=== PATIENT | female | born 1975 | race Caucasian/White ===

== ENCOUNTER 2016-09-22 09:31 | Outpatient (CLI) | payer BC | END 2016-09-22 09:32 | disposition home or self-care (01) | DX: R53.83 Other fatigue (principal); D64.9 Anemia, unspecified; E03.9 Hypothyroidism, unspecified ==

== ENCOUNTER 2016-11-15 09:40 | Outpatient (CLI) | payer BC | END 2016-11-15 09:41 | disposition home or self-care (01) | DX: E03.9 Hypothyroidism, unspecified (principal); R53.83 Other fatigue; D64.9 Anemia, unspecified ==

== ENCOUNTER 2017-02-02 09:42 | Outpatient (CLI) | payer BC ==
[2017-02-02 18:28] LABS: FERRITIN 56.1 ng/mL (11.0-306.8); TOTAL T3 1.15 ng/mL (0.87-1.78)
[2017-02-02 18:39] LABS: THYROID STIMULATING HORMONE 0.5 uIU/mL (0.34-5.60)
== END 2017-02-02 09:43 | disposition home or self-care (01) ==
LOC: LAB.F 09:42
PROVIDERS: ATTEND Family Medicine
DX: E03.9 Hypothyroidism, unspecified (principal)
CPT/HCPCS: 36415; 82728; 84439; 84443; 84480; 84481; 84482

== ENCOUNTER 2017-09-05 15:07 | Outpatient (CLI) | payer BC ==
[2017-09-05 18:54] LABS: THYROID STIMULATING HORMONE 1.24 uIU/mL (0.34-5.60)
[2017-09-05 18:58] LABS: FREE T4 (FREE THYROXINE) 0.83 ng/dL (0.58-1.64)
== END 2017-09-05 15:08 | disposition home or self-care (01) ==
LOC: LAB.F 15:07
PROVIDERS: ATTEND Internal Medicine Endocrinology, Diabetes & Metabolism
DX: E03.9 Hypothyroidism, unspecified (principal)
CPT/HCPCS: 36415; 84439; 84443

== ENCOUNTER 2018-06-20 09:09 | Outpatient (CLI) | payer BC ==
[2018-06-20 18:17] LABS: THYROID STIMULATING HORMONE 0.22 uIU/mL (0.34-5.60)
[2018-06-20 18:20] LABS: FREE T4 (FREE THYROXINE) 0.91 ng/dL (0.58-1.64)
== END 2018-06-20 09:10 | disposition home or self-care (01) ==
LOC: LAB.F 09:09
PROVIDERS: ATTEND Internal Medicine Endocrinology, Diabetes & Metabolism
DX: E03.9 Hypothyroidism, unspecified (principal)
CPT/HCPCS: 36415; 84439; 84443

== ENCOUNTER 2018-10-19 11:35 | Outpatient (CLI) | payer BC ==
[2018-10-19 18:12] LABS: THYROID STIMULATING HORMONE 0.2 uIU/mL (0.34-5.60)
[2018-10-19 18:14] LABS: FREE T4 (FREE THYROXINE) 0.88 ng/dL (0.58-1.64)
== END 2018-10-19 11:36 | disposition home or self-care (01) ==
LOC: LAB.F 11:35
PROVIDERS: ATTEND Internal Medicine Endocrinology, Diabetes & Metabolism
DX: E03.9 Hypothyroidism, unspecified (principal)
CPT/HCPCS: 36415; 84439; 84443

== ENCOUNTER 2020-12-19 11:56 | Outpatient (CLI) | payer BC ==
[2020-12-19 15:50] LABS: THYROID STIMULATING HORMONE 0.33 uIU/mL (0.34-5.60)
[2020-12-19 15:51] LABS: FREE T3 4.27 pg/mL (2.5-3.9)
[2020-12-19 15:52] LABS: FREE T4 (FREE THYROXINE) 1.09 ng/dL (0.58-1.64)
[2020-12-24 01:46] LABS: THYROID PEROXIDASE ANTIBODIES 22 IU/mL (<9)
== END 2020-12-19 11:57 | disposition home or self-care (01) ==
LOC: LAB.S 11:56
PROVIDERS: ATTEND Acupuncturist
DX: E06.3 Autoimmune thyroiditis (principal); R76.0 Raised antibody titer
CPT/HCPCS: 36415; 84439; 84443; 84481; 86376; 86800

== ENCOUNTER 2021-01-23 17:48 | Outpatient (CLI) | payer BC ==
[2021-01-23 20:40] LABS: THYROID STIMULATING HORMONE 3.27 uIU/mL (0.34-5.60)
[2021-01-23 20:42] LABS: FREE T3 3.19 pg/mL (2.5-3.9); FREE T4 (FREE THYROXINE) 0.9 ng/dL (0.58-1.64)
[2021-01-23 20:47] LABS: PROLACTIN 7.5 ng/mL
[2021-01-27 12:22] LABS: DHEA SULFATE 379 mcg/dL (19-231)
[2021-01-27 13:56] LABS: THYROID PEROXIDASE ANTIBODIES 30 IU/mL (<9)
[2021-01-28 21:02] LABS: DIHYDROTESTOSTERONE 5 ng/dL (< OR = 20)
== END 2021-01-23 17:49 | disposition home or self-care (01) ==
LOC: LAB.S 17:48
PROVIDERS: ATTEND Acupuncturist
DX: E06.3 Autoimmune thyroiditis (principal); E28.1 Androgen excess
CPT/HCPCS: 36415; 80327; 82627; 84146; 84439; 84443; 84481; 86376; 86800

== ENCOUNTER 2021-03-26 09:23 | Outpatient (CLI) | payer BC ==
[2021-03-26 15:56] LABS: THYROID STIMULATING HORMONE 7.38 uIU/mL (0.34-5.60)
[2021-03-26 15:58] LABS: FREE T3 3.33 pg/mL (2.5-3.9); FREE T4 (FREE THYROXINE) 1.01 ng/dL (0.58-1.64)
== END 2021-03-26 09:24 | disposition home or self-care (01) ==
LOC: LAB.S 09:23
PROVIDERS: ATTEND Acupuncturist
DX: E06.3 Autoimmune thyroiditis (principal)
CPT/HCPCS: 36415; 84439; 84443; 84481

== ENCOUNTER 2021-04-22 12:29 | Outpatient (CLI) | payer BC | END 2021-04-22 12:30 | disposition home or self-care (01) | LOC: LAB.S 12:29 | PROVIDERS: ATTEND Physician Assistant | DX: E03.9 Hypothyroidism, unspecified (principal); K59.00 Constipation, unspecified; F41.9 Anxiety disorder, unspecified | CPT/HCPCS: 82784; 83516; 86255 ==

== ENCOUNTER 2021-04-29 08:42 | Outpatient (CLI) | payer BC ==
--- NOTE | 2021-04-29 10:47 | XRAY Report ---
PROCEDURE: Lumbar Spine 2 View INDICATIONS: CHRONIC LOWER PX TECHNIQUE: 3 views of the lumbar spine were acquired. COMPARISON: None. FINDINGS: Mild dextrocurvature. Scattered multilevel endplate spurring and diffuse facet arthropathy. Mild narr owing of the L5-S1 disc space. There is also mild narrowing of the lower thoracic disc spaces. Mild n arrowing of the L1-L2 disc space. IMPRESSION: Multilevel mild lumbar spondylosis and diffuse facet arthropathy. Mild dextrocurvature. Reviewed by: Gary Nevarez MD on 04/29/2021 10:45 AM PDT Approved by: Gary Nevarez MD on 04/29/2021 10:45 AM PDT Station ID: [id number]
== END 2021-04-29 08:43 | disposition home or self-care (01) ==
LOC: DI.S 08:42
PROVIDERS: ATTEND Nurse Practitioner Psychiatric/Mental Health
DX: M47.816 Spondylosis without myelopathy or radiculopathy, lumbar region (principal); M48.061 Spinal stenosis, lumbar region without neurogenic claudication

== ENCOUNTER 2021-07-20 10:09 | Outpatient (CLI) | payer BC ==
[2021-07-20 14:43] LABS: BASOPHILS % (AUTO) 0.4 %; EOSINOPHILS # (AUTO) 0.1 10^3/uL (0.0-0.7); EOSINOPHILS % (AUTO) 1.3 %; HGB - HEMOGLOBIN 12.6 g/dL (12.0-16.0); LYMPHOCYTES # (AUTO) 1.3 10^3/uL (1.5-3.5); LYMPHOCYTES % (AUTO) 25.2 %; MEAN CORPUSCULAR HEMOGLOBIN 30.7 pg (27.0-31.0); MEAN CORPUSCULAR HGB CONC 33.2 g/dL (32.0-36.0); MEAN CORPUSCULAR VOLUME 92.5 fL (81.0-99.0); MONOCYTES # (AUTO) 0.4 10^3/uL (0.0-1.0); MONOCYTES % (AUTO) 7.6 %; NEUTROPHILS # (AUTO) 3.4 10^3/uL (1.5-6.6); NEUTROPHILS % (AUTO) 65.1 %; PLT - PLATELET COUNT 288 10^3/uL (130-450); RED BLOOD COUNT 4.11 10^6/uL (4.20-5.40); RED CELL DISTRIBUTION WIDTH 12.1 % (12.0-15.0); WHITE BLOOD COUNT 5.3 x10^3/uL (4.8-10.8)
[2021-07-20 14:46] LABS: ALBUMIN 4.4 g/dL (3.2-5.5); ALBUMIN/GLOBULIN RATIO 1.8 (1.0-2.2); BILIRUBIN,TOTAL 0.7 mg/dL (0.2-1.0); CALCIUM 9.3 mg/dL (8.5-10.3); CREATININE 0.7 mg/dL (0.4-1.0); POTASSIUM 3.9 mmol/L (3.5-5.0); TOTAL PROTEIN 6.9 g/dL (6.7-8.2)
== END 2021-07-20 10:10 | disposition home or self-care (01) ==
LOC: LAB.S 10:09
PROVIDERS: ATTEND Acupuncturist
DX: R19.7 Diarrhea, unspecified (principal); R10.9 Unspecified abdominal pain
CPT/HCPCS: 36415; 80053; 81599; 85025; 87045; 87177; 87209; 87329; 87427; 87449

== ENCOUNTER 2021-08-13 13:30 | Outpatient (CLI) | payer BC ==
[2021-08-13 20:06] LABS: BASOPHILS % (AUTO) 0.4 %; EOSINOPHILS # (AUTO) 0.1 10^3/uL (0.0-0.7); EOSINOPHILS % (AUTO) 0.7 %; HCT - HEMATOCRIT 42.1 % (37.0-47.0); LYMPHOCYTES # (AUTO) 1.5 10^3/uL (1.5-3.5); LYMPHOCYTES % (AUTO) 15.1 %; MEAN CORPUSCULAR HEMOGLOBIN 30.6 pg (27.0-31.0); MEAN CORPUSCULAR HGB CONC 33.3 g/dL (32.0-36.0); MEAN CORPUSCULAR VOLUME 92.1 fL (81.0-99.0); MEAN PLATELET VOLUME 10.2 fL (7.9-10.8); MONOCYTES # (AUTO) 0.5 10^3/uL (0.0-1.0); NEUTROPHILS # (AUTO) 7.6 10^3/uL (1.5-6.6); NEUTROPHILS % (AUTO) 78.5 %; PLT - PLATELET COUNT 339 10^3/uL (130-450); RED BLOOD COUNT 4.57 10^6/uL (4.20-5.40); WHITE BLOOD COUNT 9.7 x10^3/uL (4.8-10.8)
[2021-08-13 20:35] LABS: FREE T3 3.35 pg/mL (2.5-3.9); THYROID STIMULATING HORMONE 19.48 uIU/mL (0.34-5.60)
[2021-08-13 20:36] LABS: FREE T4 (FREE THYROXINE) 0.76 ng/dL (0.58-1.64)
== END 2021-08-13 13:31 | disposition home or self-care (01) ==
LOC: LAB.S 13:30
PROVIDERS: ATTEND Acupuncturist
DX: E06.3 Autoimmune thyroiditis (principal); R19.7 Diarrhea, unspecified
CPT/HCPCS: 36415; 83993; 84439; 84443; 84481; 85025; 86140; 86141; 87493

== ENCOUNTER 2021-09-18 12:04 | Outpatient (CLI) | payer BC ==
[2021-09-18 16:17] LABS: THYROID STIMULATING HORMONE 19.39 uIU/mL (0.34-5.60)
[2021-09-18 16:19] LABS: FREE T3 3.5 pg/mL (2.5-3.9); FREE T4 (FREE THYROXINE) 0.84 ng/dL (0.58-1.64)
== END 2021-09-18 12:05 | disposition home or self-care (01) ==
LOC: LAB.S 12:04
PROVIDERS: ATTEND Internal Medicine Endocrinology, Diabetes & Metabolism
DX: E03.9 Hypothyroidism, unspecified (principal); R19.7 Diarrhea, unspecified
CPT/HCPCS: 36415; 84439; 84443; 84481

== ENCOUNTER 2021-11-25 08:54 | Outpatient (CLI) | payer BC ==
[2021-11-25 15:50] LABS: CORTISOL 12.3 ug/dL
[2021-11-25 15:53] LABS: THYROID STIMULATING HORMONE 8.63 uIU/mL (0.34-5.60)
[2021-11-25 15:55] LABS: FREE T4 (FREE THYROXINE) 0.79 ng/dL (0.58-1.64)
[2021-11-25 15:58] LABS: PROLACTIN 12.6 ng/mL
[2021-11-25 16:19] LABS: FOLLICLE STIMULATING HORMONE 19.25 mIU/mL
[2021-11-25 16:20] LABS: LUTEINIZING HORMONE 5.6 mIU/mL
== END 2021-11-25 08:55 | disposition home or self-care (01) ==
LOC: LAB.S 08:54
PROVIDERS: ATTEND Internal Medicine Endocrinology, Diabetes & Metabolism
DX: E23.7 Disorder of pituitary gland, unspecified (principal); E03.9 Hypothyroidism, unspecified
CPT/HCPCS: 36415; 81599; 82533; 82670; 83001; 83002; 84146; 84305; 84439; 84443; 84480

== ENCOUNTER 2022-04-30 09:24 | Outpatient (CLI) | payer BC ==
[2022-04-30 16:05] LABS: THYROID STIMULATING HORMONE 2.13 uIU/mL (0.34-5.60)
[2022-04-30 16:10] LABS: FREE T4 (FREE THYROXINE) 1.1 ng/dL (0.58-1.64)
[2022-04-30 16:11] LABS: PROLACTIN 10.04 ng/mL
[2022-04-30 16:32] LABS: FOLLICLE STIMULATING HORMONE 22.13 mIU/mL
[2022-04-30 16:34] LABS: LUTEINIZING HORMONE 10.29 mIU/mL
== END 2022-04-30 09:25 | disposition home or self-care (01) ==
LOC: LAB.S 09:24
PROVIDERS: ATTEND Internal Medicine Endocrinology, Diabetes & Metabolism
DX: E03.9 Hypothyroidism, unspecified (principal); E23.7 Disorder of pituitary gland, unspecified
CPT/HCPCS: 36415; 82533; 82670; 83001; 83002; 84146; 84305; 84439; 84443; 84480

== ENCOUNTER 2023-01-05 09:07 | Outpatient (CLI) | payer BC ==
[2023-01-05 15:43] LABS: CALCIUM 9.8 mg/dL (8.5-10.3); CREATININE 0.8 mg/dL (0.4-1.0); POTASSIUM 4.5 mmol/L (3.5-5.0)
[2023-01-05 15:48] LABS: THYROID STIMULATING HORMONE 8.3 uIU/mL (0.34-5.60)
[2023-01-05 15:52] LABS: ESTIMATED AVERAGE GLUCOSE 105 mg/dL (70-100); HEMOGLOBIN A1c% 5.3 % (4.27-6.07)
== END 2023-01-05 09:08 | disposition home or self-care (01) ==
LOC: LAB.S 09:07
PROVIDERS: ATTEND Internal Medicine Endocrinology, Diabetes & Metabolism
DX: E03.9 Hypothyroidism, unspecified (principal); Z83.3 Family history of diabetes mellitus
CPT/HCPCS: 36415; 80048; 83036; 84439; 84443

== ENCOUNTER 2023-10-14 08:32 | Outpatient (CLI) | payer BC ==
[2023-10-14 15:23] LABS: ESTIMATED AVERAGE GLUCOSE 105 mg/dL (70-100); HEMOGLOBIN A1c% 5.3 % (4.27-6.07)
[2023-10-14 15:52] LABS: CALCIUM 9.8 mg/dL (8.5-10.3); CREATININE 0.8 mg/dL (0.6-1.3); POTASSIUM 4.5 mmol/L (3.5-4.5)
[2023-10-14 15:53] LABS: THYROID STIMULATING HORMONE 12.81 uIU/mL (0.34-5.60)
== END 2023-10-14 08:33 | disposition home or self-care (01) ==
LOC: LAB.S 08:32
PROVIDERS: ATTEND Internal Medicine Endocrinology, Diabetes & Metabolism
DX: E03.9 Hypothyroidism, unspecified (principal); Z83.3 Family history of diabetes mellitus
CPT/HCPCS: 36415; 80048; 83036; 84439; 84443

== ENCOUNTER 2023-11-08 08:00 | Outpatient (CLI) | payer BC ==
--- NOTE | 2023-11-08 16:09 | XRAY Report ---
PROCEDURE: Chest 2V INDICATIONS: WHEEZING TECHNIQUE: 2 views of the chest were acquired. COMPARISON: None. FINDINGS: Surgical changes and devices: None. Lungs and pleura: No pleural effusions or pneumothorax. Lungs are clear. Mediastinum: Mediastinal contours appear normal. Heart size is normal. Bones and chest wall: No suspicious bony lesions. Overlying soft tissues appear unremarkable. IMPRESSION: No acute cardiopulmonary process. Reviewed by: Sang Castorena MD on 11/08/2023 4:08 PM PDT Approved by: Sang Castorena MD on 11/08/2023 4:08 PM PDT Station ID: [id number]
== END 2023-11-08 23:59 | disposition home or self-care (01) ==
LOC: DI.S 08:00
PROVIDERS: ATTEND Nurse Practitioner
DX: R06.2 Wheezing (principal)

== ENCOUNTER 2023-12-01 08:31 | Outpatient (CLI) | payer BC ==
[2023-12-01 15:36] LABS: BILIRUBIN,URINE NEGATIVE (NEGATIVE); GLUCOSE, URINE (UA) NEGATIVE (NEGATIVE); KETONES,URINE (UA) NEGATIVE (NEGATIVE); LEUKOCYTE ESTERASE, URINE NEGATIVE (NEGATIVE); NITRITE,URINE NEGATIVE (NEGATIVE); OCCULT BLOOD,URINE TRACE-INTA (NEGATIVE); PROTEIN,URINE NEGATIVE (NEGATIVE); UROBILINOGEN,URINE 0.2 (NORMAL) E.U./dL (NORMAL)
[2023-12-01 15:44] LABS: ALBUMIN 4.4 g/dL (3.2-5.5); CALCIUM 9.9 mg/dL (8.5-10.3); CREATININE 0.9 mg/dL (0.6-1.3); MAGNESIUM 2.1 mg/dL (1.7-2.3); PHOSPHORUS 2.5 mg/dL (2.5-5.0); POTASSIUM 3.9 mmol/L (3.5-4.5)
[2023-12-01 15:53] LABS: AMORPHOUS SEDIMENT,UR Marked /LPF; BACTERIA,URINE Rare /HPF (None Seen); CLARITY,URINE CLOUDY (CLEAR); RBC,URINE 0-5 /HPF (0-5); SQUAMOUS EPITHELIAL CELL,UR FEW Squamous (<= Few); WBC,URINE 0-3 /HPF (0-5)
[2023-12-01 16:01] LABS: CREATININE,URINE 220.4 mg/dL; MICROALBUM/CREATININE RATIO,UR 10.9 ug/mg (<30.0); MICROALBUMIN,URINE 2.4 mg/dL; PROTEIN/CREATININE RATIO,URINE 0.1 (<=0.2)
[2023-12-01 16:02] LABS: THYROID STIMULATING HORMONE 1.32 uIU/mL (0.34-5.60)
[2023-12-01 20:28] LABS: ESTIMATED AVERAGE GLUCOSE 114 mg/dL (70-100); HEMOGLOBIN A1c% 5.6 % (4.27-6.07)
[2023-12-03 01:08] LABS: HCV AB Non Reactive (Non Reactive)
== END 2023-12-01 08:32 | disposition home or self-care (01) ==
LOC: LAB.S 08:31
PROVIDERS: ATTEND Internal Medicine
DX: N18.32 Chronic kidney disease, stage 3b (principal); E03.9 Hypothyroidism, unspecified; Z83.3 Family history of diabetes mellitus
CPT/HCPCS: 36415; 80048; 80069; 81001; 82043; 82570; 83036; 83735; 84156; 84439; 84443; 86803

== ENCOUNTER 2024-01-09 08:28 | Outpatient (CLI) | payer BC ==
[2024-01-09 14:57] LABS: CALCIUM 9.8 mg/dL (8.5-10.3); CREATININE 0.7 mg/dL (0.6-1.3); POTASSIUM 3.7 mmol/L (3.5-4.5)
[2024-01-09 15:04] LABS: THYROID STIMULATING HORMONE 0.95 uIU/mL (0.34-5.60)
[2024-01-09 21:07] LABS: ESTIMATED AVERAGE GLUCOSE 100 mg/dL (70-100); HEMOGLOBIN A1c% 5.1 % (4.27-6.07)
== END 2024-01-09 08:29 | disposition home or self-care (01) ==
LOC: LAB.S 08:28
PROVIDERS: ATTEND Internal Medicine Endocrinology, Diabetes & Metabolism
DX: E03.9 Hypothyroidism, unspecified (principal); Z83.3 Family history of diabetes mellitus
CPT/HCPCS: 36415; 80048; 83036; 84436; 84439; 84443